=== PATIENT | male | born 1975 | race Caucasian/White ===

== ENCOUNTER 2019-03-01 20:00 | Emergency (ER) | payer SELFPAY ==
[~2019-03-01] VITALS: Ht 175.3 cm; Wt 119.3 kg
[2019-03-01 20:05] VITALS: Ht 175.3 cm; Wt 119.3 kg
[2019-03-02 00:18] VITALS: BP 156/99
== END 2019-03-02 00:18 | disposition home or self-care (01) ==
LOC: ED 20:00
DX: J02.9 Acute pharyngitis, unspecified (principal)